=== PATIENT | male | born 1945 | race Caucasian/White ===

== ENCOUNTER → 2018-03-25 | Outpatient (CLI) | payer OTHER | LOC: FIMAGING 10:22 | PROVIDERS: ATTEND Orthopaedic Surgery | DX: Z01.818 Encounter for other preprocedural examination (principal); M17.11 Unilateral primary osteoarthritis, right knee ==

== ENCOUNTER 2018-04-08 07:15 | Observation (INO) | payer OTHER ==
--- NOTE | 2018-04-08 07:03 | PDHPUP ---
History & Physical Update H&P update statement: This history and physical update is based on an assessment of the patient which was completed after admission or registration (within 24 hours), but prior to the surgery/procedure. H&P update: H&P reviewed & patient examined, no change in patient's condition since H&P completed
[~2018-04-08 07:15] MED LIST: ROPIVACAINE 0.2% 80 MG, EPINEPHrine 0.2 MG, KETOROLAC TROMETHAMINE 30 MG in SYRINGE 0 ML IU ONE; TRANEXAMIC ACID 3,000 MG in NS (SYRINGE) 50 ML IRR ONE
[2018-04-08] MEDS ORDERED: TRANEXAMIC ACID 3,000 MG/50 ML BAG IRR ONE (07:54)
[2018-04-08] MEDS ORDERED: FAMOTIDINE 20 MG TAB PO ONE (09:16)
[2018-04-08] MEDS ORDERED: DEXAMETHASONE 4 MG/ML VIAL IVP ONE (09:16)
[2018-04-08] MEDS ORDERED: ceFAZolin 2 GM/DEXTROSE 100 ML IV ONE (09:16)
[2018-04-08] MEDS ORDERED: ACETAMINOPHEN 325 MG TAB PO ONE (09:16)
[2018-04-08] MEDS ORDERED: LR 1,000 ML IV ONE (09:17)
[2018-04-08] MEDS ORDERED: LIDOCAINE 1% 2 ML INJ ID PRN (09:17)
[2018-04-08] MEDS ORDERED: PROPOFOL 200 MG/20 ML VIAL ONE (11:16)
[2018-04-08] MEDS ORDERED: MIDAZOLAM 2 MG/2 ML VIAL ONE (11:17)
[2018-04-08] MEDS ORDERED: LIDOCAINE 2% 5 ML SDV ONE (11:38)
[2018-04-08] MEDS ORDERED: ePHEDrine SULFATE 25 MG/5 ML SYR ONE (11:38)
[2018-04-08] MEDS ORDERED: ROPIVACAINE HCL 150 MG/30 ML INJ ONE (11:38)
--- NOTE | 2018-04-08 11:40 | PDANEPAE ---
ANE Past Medical History - Cardiovascular History Hx Hypertension: Yes Hx Arrhythmias: No Hx Chest Pain: No Hx Coronary Artery / Peripheral Vascular Disease: Yes Hx CHF / Valvular Disease: No Hx Palpitations: No Cardiovascular History Comment: cad- stent x1 placed 20 years ago. high chol. currently not seeing frame carver spindle - Pulmonary History Hx COPD: No Hx Asthma/Reactive Airway Disease: No Hx Recent Upper Respiratory Infection: No Hx Oxygen in Use at Home: No Hx Sleep Apnea: No Sleep Apnea Screening Result - Last Documented: Positive Pulmonary History Comment: leonides triggers only - Neurologic History Hx Cerebrovascular Accident: No Hx Seizures: No Hx Dementia: No Neurologic History Comment: possible tia- no definite diagnosis around 5 yrs ago - Endocrine History Hx Diabetes: No - Renal History Hx Renal Disorders: Yes Renal History Comment: bph - Liver History Hx Hepatic Disorders: No - Neurological & Psychiatric Hx Hx Neurological and Psychiatric Disorders: Yes Neurological / Psychiatric History Comment: depression - Cancer History Hx Cancer: No - Congenital Disorder History Hx Congenital Disorders: No - GI History Hx Gastrointestinal Disorders: Yes Gastrointestinal History Comment: occ reflux. occ constipation - Other Health History Other Health History: wears glasses. bilateral hearing aides - Chronic Pain History Chronic Pain: Yes (right knee) - Surgical History Prior Surgeries: hernia repair 2016. knee scope. tumor removal between lungs. tonsillectomy ANE Review of Systems Review of Systems: - Exercise capacity METS (RN): 4 METS ANE Patient History - Allergies Allergies/Adverse Reactions: No Known Allergies Allergy (Verified 03/25/18 11:42) - Home Medications Home Medications: Aspirin [Aspirin 81mg (*)] 81 mg PO DAILY 11/10/10 [Last Taken 1 Month Ago ~] traZODone [traZODone 150MG (*)] 300 mg PO HS 11/10/10 [Last Taken 04/07/18 21:00 ] Lisinopril [Zestril 20 mg (*)] 20 mg PO DAILY 09/18/14 [Last Taken 04/07/18 21: 00] Atorvastatin Calcium [Lipitor 20 mg (*)] 20 mg PO DAILY 03/25/18 [Last Taken 21:00] Sildenafil Citrate [Viagra] 100 mg PO DAILY PRN 03/25/18 [Last Taken 1 Year Ago ~04/08/17] Tamsulosin HCl [Flomax 0.4 MG (*)] 0.4 mg PO DAILY 03/25/18 [Last Taken 04/06/18 ] amLODIPine BESYLATE [Norvasc 5 mg (*)] 5 mg PO DAILY 03/25/18 [Last Taken 07:30] - NPO status NPO Since - Liquids (Date): 04/08/18 NPO Since - Liquids (Time): 06:00 NPO Since - Solids (Date): 04/07/18 NPO Since - Solids (Time): 21:00 - Smoking Hx Smoking Status: Never smoked - Family Anes Hx Family Hx Anesthesia Complications: none ANE Labs/Vital Signs - Vital Signs Blood Pressure: 150/99 Heart Rate: 70 Respiratory Rate: 16 O2 Sat (%): 95 Height: 182.88 cm Weight: 77.111 kg ANE Physical Exam - Airway Neck exam: FROM Mallampati Score: Class 1 Mouth exam: normal dental/mouth exam - Pulmonary Pulmonary: no respiratory distress, no rales or rhonchi, clear to auscultation - Cardiovascular Cardiovascular: regular rate and rhythym, no murmur, rub, or gallop - ASA Status ASA Status: III ANE Anesthesia Plan Anesthesia Plan: spinal Regional Anesthesia: adductor canal FNB
[2018-04-08] MEDS ORDERED: DEXAMETHASONE 4 MG/ML VIAL IVP PRN (11:45)
[2018-04-08] MEDS ORDERED: NALOXONE HCL 0.4 MG/ML INJ IVP PRN (11:45)
[2018-04-08] MEDS ORDERED: ALBUTEROL 3 ML DEYVIAL IH PRN (11:45)
[2018-04-08] MEDS ORDERED: fentaNYL 100 MCG/2 ML INJ IVP PRN (11:45)
[2018-04-08] MEDS ORDERED: ONDANSETRON 4 MG/2 ML VIAL IVP PRN ×2 (11:45→12:44)
[2018-04-08] MEDS ORDERED: LR 500 ML IV PRN (11:45)
[2018-04-08] MEDS ORDERED: POLYETHYLENE GLYCOL 3350 17 GM PKT PO PRN (12:44)
[2018-04-08] MEDS ORDERED: PROMETHAZINE HCL 25 MG/ML INJ IVP PRN (12:44)
[2018-04-08] MEDS ORDERED: diphenhydrAMINE 25 MG CAP PO PRN (12:44)
[2018-04-08] MEDS ORDERED: METOCLOPRAMIDE 10 MG/2 ML VIAL IVP PRN (12:44)
[2018-04-08] MEDS ORDERED: MAGNESIUM HYDROXIDE 30 ML UDCUP PO PRN (12:44)
[2018-04-08] MEDS ORDERED: LACTULOSE 20 GM/30 ML UDCUP PO PRN (12:44)
[2018-04-08] MEDS ORDERED: ONDANSETRON DISINTEGRATING 4 MG TAB PO PRN (12:44)
[2018-04-08] MEDS ORDERED: TEMAZEPAM 15 MG CAP PO PRN (12:44)
[2018-04-08] MEDS ORDERED: PROMETHAZINE HCL 25 MG SUPPR PR PRN (12:44)
[2018-04-08] MEDS ORDERED: DIPHENOXYLATE/ATROPINE LOMOTIL 1 TAB PO PRN (12:44)
[2018-04-08] MEDS ORDERED: BISACODYL 10 MG SUPP PR PRN (12:44)
--- NOTE | 2018-04-08 12:44 | POSTOPPROG ---
Post Op Note Date of Operation: 04/08/18 Surgeon: Karolina Heath Intelligence Research Specialist: pooja heath Anesthesiologist: dr. arias Anesthesia: Spinal, Other (Specify) Pre-op Diagnosis: Right knee OA Post-op Diagnosis: same Indication: right knee pain due to OA that failed conservative measures Procedure: R TKA robot assisted, computer forrest and sensor assisted Findings: severe knee OA Inf/Abcess present in the surg proc area at time of surgery?: No EBL: 50-100
[2018-04-08] MEDS ORDERED: LR 1,000 ML IV SCH (13:00)
--- NOTE | 2018-04-08 13:08 | POSTANESTH ---
Post Anesthetic Evaluation Cardiovascular Status: Normal, Stable, Similar to Pre-Op Cond Respiratory Status: Normal, Stable, Similar to Pre-op Cond. Level of Consciousness/Mental Status: Can Participate in Eval Pain Control: Adequate, Prn Tx Ordered Nausea/Vomiting Control: Adequate, Prn Tx Ordered Complications Possibly Related to Anesthesia: None Noted
[2018-04-08] MEDS ORDERED: oxyCODONE IR 5 MG TAB ONE (13:40)
[2018-04-08] MEDS: oxyCODONE IR 5 MG TAB PO PRN ×3 (13:41→22:58)
--- NOTE | 2018-04-08 14:19 | ASMTCASEMG ---
Living Arrangements What is your living Answers: With Spouse arrangement? Who do you live with? Type Of Residence What kind of residence do Answers: House you live in? Discharge Plan Comments Coordination Status Comments Notes: Pt is a 73 y/o female admitted for a total knee. Therapies have been ordered and awaiting recommendations. Needs are TBD at this time. CM to follow. Plan: TBD Date Signed: 04/08/2018 02:18 PM Electronically Signed By:VANE Ham
[2018-04-08] MEDS: ACETAMINOPHEN 325 MG TAB PO SCH (17:18)
[2018-04-08] MEDS: ceFAZolin 2 GM/DEXTROSE 100 ML IV SCH (17:18)
[2018-04-08] MEDS: CYCLOBENZAPRINE 10 MG TAB PO PRN (17:29)
[2018-04-08] MEDS: ASPIRIN 81 MG CHEWABLE TAB PO SCH (22:34)
[2018-04-08] MEDS: FAMOTIDINE 20 MG TAB PO SCH (22:34)
[2018-04-08] MEDS: SENNOSIDES/DOCUSATE SODIUM TAB PO SCH (22:35)
[2018-04-09] MEDS: CYCLOBENZAPRINE 10 MG TAB PO PRN ×3 (01:33→13:27)
[2018-04-09] MEDS: ACETAMINOPHEN 325 MG TAB PO SCH ×3 (01:33→13:26)
[2018-04-09] MEDS: ceFAZolin 2 GM/DEXTROSE 100 ML IV SCH (03:05)
--- NOTE | 2018-04-09 06:27 | GOP ---
[f rep st] OPERATIVE REPORT DATE OF OPERATION: 04/08/2018 SURGEON: Naveen Sadler MD NEUROSURGEON: Naveen Sadler MD. AUTOMATIC DEVELOPER: Julia Sadler PA-C. ANESTHESIA: Spinal. PREOPERATIVE DIAGNOSIS: Right knee osteoarthritis. POSTOPERATIVE DIAGNOSIS: Right knee osteoarthritis. PROCEDURE PERFORMED: Right total knee arthroplasty with computer navigation, robotic assist. FINDINGS: ESTIMATED BLOOD LOSS: 30 cc. INDICATIONS: The patient is a 73-year-old male with severe and progressive pain and deformity of the right knee unresponsive to conservative care. The risks and benefits of surgical intervention were explained in detail. DESCRIPTION OF PROCEDURE: The patient was brought to the operative room and placed on the table in the supine position. Spinal anesthesia was induced without difficulty. A pneumatic tourniquet was applied about the right proximal thigh, and the leg was prepped and draped in a sterile fashion. The leg tompkins was applied. After exsanguination by elevation the tourniquet was inflated to 250 mmHg. Incision was made anterior medial from the tibial tuberosity to the superior pole of the patella. Medial parapatellar arthrotomy was carried out from the barkley the patella and posteriorly in line with the fibers of the Type II VMO. The medial collateral ligament was elevated and the infrapatellar fat pad was resected. The patella was everted and the articular surface was excised. A 30 mm patellar button was placed. Attention was turned first to the distal aspect of the femur. After exposure of the femur, 2 half pins were placed for fixation of the femoral array. In a similar fashion, 2 pins were placed anteromedial on the tibia for fixation of the tibial array. External land marking and registration of the hip center was performed without difficulty. Internal femoral and tibial registration was carried out without difficulty and the femoral and tibial checkpoints were placed and verified for accuracy. Attention was turned to the femur. The foot print for the size 6 femoral component was cut with the saw using the [employer] robotic system and verified for accuracy against the CT based plan. In a similar fashion, the saw was used to cut the footprint for the size 6 tibial component using the [employer] system and verified for accuracy against the CT based plan. The tibial articular surface was excised without difficulty, followed by the intercondylar box cut. The knee was extended and the remnants of the medial and lateral meniscus were excised. The posterior capsule was injected with ropivacaine, epinephrine and Toradol. A size 6 mm tibial tray was positioned. Trial reduction was then carried out. There was excellent range of motion, alignment, and stability using the 6 x 9 mm polyethylene. All trials were then removed. The joint was thoroughly irrigated and carefully dried. The pressfit components were implanted. The permanent 6 x 9 mm polyethylene was placed without difficulty. The tourniquet was deflated and all bleeders were coagulated. The wound was thoroughly irrigated and closed using interrupted sutures of 2-0 Vicryl for the joint capsule. The subcu was closed with 3-0 Vicryl and the skin with 4-0 Monocryl. Dermabond and Steri-Strips were applied followed by a compressive dressing. The patient was then moved from the operating room to the recovery room in good condition, having tolerated the procedure well. OrthoSensor Verasense sensor was used to confirm balance and alignment. PATHOLOGY: Severe patellofemoral osteoarthritis. /[id number]/MODL MTDD
[2018-04-09] MEDS ORDERED: ATORVASTATIN CALCIUM 20 MG TAB PO SCH (09:00)
[2018-04-09] MEDS ORDERED: amLODIPine BESYLATE 5 MG TAB PO SCH (09:00)
[2018-04-09] MEDS ORDERED: TAMSULOSIN HCL 0.4 MG CAP PO SCH (09:00)
[2018-04-09] MEDS ORDERED: LISINOPRIL 20 MG TAB PO SCH (09:00)
[2018-04-09] MEDS: SENNOSIDES/DOCUSATE SODIUM TAB PO SCH (09:31)
[2018-04-09] MEDS: FAMOTIDINE 20 MG TAB PO SCH (09:31)
[2018-04-09] MEDS: ASPIRIN 81 MG CHEWABLE TAB PO SCH (09:32)
[2018-04-09] MEDS: oxyCODONE IR 5 MG TAB PO PRN ×2 (09:41→13:27)
[2018-04-09 12:42] VITALS: BP 123/68
--- NOTE | 2018-04-09 17:03 | SOAPPROG ---
SOAP Progress Note Assessment/Plan: Assessment: Patient is doing well POD 1 s/p R TKA Pain management: pain is well controlled on oral pain meds. VTE ppx: recommend aspirin 81 mg BID for 4 weeks, cont DINORAH and SCDs Anemia: level is expected initially postop. Asymptomatic. Continue to monitor D/c planning: d/c to home today pending release from PT Plan: 04/09/18 17:02 Subjective: patient is doing well today, denies SOB, chest pain, N/V. Objective: Vital Signs Temp Pulse Resp BP Pulse Ox 36.8 C 70 16 123/68 H 96 04/09/18 12:00 04/09/18 12:00 04/09/18 12:00 04/09/18 12:00 04/09/18 12:00 Laboratory Results 04/09/18 05:12 04/08/18 04/09/18 04/10/18 05:59 05:59 05:59 Intake Total 2761 500 Output Total 1395 250 Balance 1366 250 RLE; incision dressing is clean and dry, NVI, +pf/df ICD10 Worksheet Patient Problems: Problems Problem Status Onset Primary localized osteoarthritis of right knee Acute
== END 2018-04-09 13:35 | disposition home or self-care (01) ==
LOC: F3N 08:51
PROVIDERS: ADMIT Orthopaedic Surgery; ATTEND Orthopaedic Surgery
PROC: 0SRC06Z Replacement of Right Knee Joint with Oxidized Zirconium on Polyethylene Synthetic Substitute, Open Approach (ICD-10-PCS; principal; 2018-04-08 11:15)
DX: M17.11 Unilateral primary osteoarthritis, right knee (principal); I10 Essential (primary) hypertension; F32.9 Major depressive disorder, single episode, unspecified; Z95.5 Presence of coronary angioplasty implant and graft; Z87.820 Personal history of traumatic brain injury
CPT/HCPCS: 27447; 73560; 88311; 97116; 97161; 97165; C1776; G0378; G8978; G8979; G8980; J0171; J0690; J1100; J1885; J2250; J2704; J2795

== ENCOUNTER → 2018-04-17 | Outpatient (CLI) | payer OTHER | LOC: FIMAGING 10:56 | PROVIDERS: ATTEND Orthopaedic Surgery | DX: I80.01 Phlebitis and thrombophlebitis of superficial vessels of right lower extremity (principal); Z96.659 Presence of unspecified artificial knee joint ==

== ENCOUNTER → 2018-06-18 | Outpatient (CLI) | payer OTHER | LOC: CIMAGING 14:59 | PROVIDERS: ATTEND Internal Medicine | DX: R42 Dizziness and giddiness (principal); G45.9 Transient cerebral ischemic attack, unspecified; Z95.5 Presence of coronary angioplasty implant and graft | CPT/HCPCS: 93880-PO ==

== ENCOUNTER → 2018-06-26 | Outpatient (CLI) | payer OTHER | LOC: FIMAGING 10:49 | PROVIDERS: ATTEND Orthopaedic Surgery | DX: Z01.818 Encounter for other preprocedural examination (principal); M17.12 Unilateral primary osteoarthritis, left knee ==

== ENCOUNTER 2018-07-10 07:16 | Inpatient (IN) | payer OTHER ==
[2018-07-10] MEDS ORDERED: TRANEXAMIC ACID 3,000 MG/50 ML BAG IRR ONE (07:44)
[2018-07-10] MEDS ORDERED: LIDOCAINE 2% 100 MG/5 ML SYR ONE (07:45)
[2018-07-10] MEDS ORDERED: MIDAZOLAM 2 MG/2 ML VIAL ONE (07:46)
[2018-07-10] MEDS ORDERED: fentaNYL 100 MCG/2 ML INJ ONE ×2 (07:46→11:15)
[2018-07-10] MEDS ORDERED: PROPOFOL/EMULSION 500 MG/50 ML BOTTLE IV ONE (07:46)
[2018-07-10] MEDS ORDERED: ACETAMINOPHEN 325 MG TAB PO ONE (08:04)
[2018-07-10] MEDS ORDERED: ceFAZolin 2 GM/DEXTROSE 100 ML IV ONE (08:04)
[2018-07-10] MEDS ORDERED: DEXAMETHASONE 4 MG/ML VIAL IVP ONE (08:04)
[2018-07-10] MEDS ORDERED: LR 1,000 ML IV ONE (08:04)
[2018-07-10] MEDS ORDERED: FAMOTIDINE 20 MG TAB PO ONE (08:04)
[2018-07-10] MEDS ORDERED: DEXAMETHASONE 4 MG/ML VIAL ONE (08:31)
--- NOTE | 2018-07-10 09:04 | PDANEPAE ---
ANE History of Present Illness L knee DJD, here for L TKA ANE Past Medical History - Cardiovascular History Hx Hypertension: Yes Hx Arrhythmias: No Hx Chest Pain: No Hx Coronary Artery / Peripheral Vascular Disease: Yes Hx CHF / Valvular Disease: No Hx Palpitations: No Cardiovascular History Comment: cad- stent x1 placed 20 years ago. high chol. currently not seeing psych therapist - Pulmonary History Hx COPD: No Hx Asthma/Reactive Airway Disease: No Hx Recent Upper Respiratory Infection: No Hx Oxygen in Use at Home: No Hx Sleep Apnea: No Sleep Apnea Screening Result - Last Documented: Positive Pulmonary History Comment: leonides triggers only - Neurologic History Hx Cerebrovascular Accident: No Hx Seizures: No Hx Dementia: No Neurologic History Comment: possible tia- no definite diagnosis around 5 yrs ago - Endocrine History Hx Diabetes: No - Renal History Hx Renal Disorders: No Renal History Comment: bph - Liver History Hx Hepatic Disorders: No - Neurological & Psychiatric Hx Hx Neurological and Psychiatric Disorders: Yes Neurological / Psychiatric History Comment: depression - Cancer History Hx Cancer: No - Congenital Disorder History Hx Congenital Disorders: No - GI History Hx Gastrointestinal Disorders: Yes Gastrointestinal History Comment: occ reflux. occ constipation - Other Health History Other Health History: wears glasses. bilateral hearing aides - Chronic Pain History Chronic Pain: No - Surgical History Prior Surgeries: hernia repair 2016. knee scope. tumor removal between lungs. tonsillectomy. R TKA ANE Review of Systems Review of Systems: - Exercise capacity METS (RN): 4 METS ANE Patient History - Allergies Allergies/Adverse Reactions: No Known Allergies Allergy (Verified 03/25/18 11:42) - Home Medications Home Medications: traZODone [traZODone 150MG (*)] 300 mg PO HS 11/10/10 [Last Taken 07/09/18] Lisinopril [Zestril 20 mg (*)] 20 mg PO DAILY 09/18/14 [Last Taken 04/07/18 21: 00] Atorvastatin Calcium [Lipitor 20 mg (*)] 20 mg PO DAILY 03/25/18 [Last Taken ] Sildenafil Citrate [Viagra] 100 mg PO DAILY PRN 03/25/18 [Last Taken 1 Year Ago ~04/08/17] Tamsulosin HCl [Flomax 0.4 MG (*)] 0.4 mg PO HS 03/25/18 [Last Taken 07/09/18] amLODIPine BESYLATE [Norvasc 5 mg (*)] 5 mg PO DAILY 03/25/18 [Last Taken ] Acetaminophen [Tylenol 325mg (*)] 650 mg PO Q6HRS PRN 05/29/18 [Last Taken 07/09] Aspirin [Aspirin 81mg (*)] 81 mg PO DAILY 05/29/18 [Last Taken 07/09/18] Multivitamins [Multivitamin (*)] 1 each PO DAILY 05/29/18 [Last Taken 06/30/18] - Smoking Hx Smoking Status: Never smoked - Family Anes Hx Family Hx Anesthesia Complications: none ANE Labs/Vital Signs - Vital Signs Height: 182.88 cm Weight: 77.111 kg ANE Physical Exam - Airway Neck exam: FROM Mallampati Score: Class 1 Mouth exam: normal dental/mouth exam - Pulmonary Pulmonary: no respiratory distress - Cardiovascular Cardiovascular: regular rate and rhythym - ASA Status ASA Status: III ANE Anesthesia Plan Anesthesia Plan: GA with mask, spinal
[2018-07-10] MEDS ORDERED: diphenhydrAMINE 25 MG CAP PO PRN (09:45)
[2018-07-10] MEDS ORDERED: CYCLOBENZAPRINE 10 MG TAB PO PRN (09:45)
[2018-07-10] MEDS ORDERED: POLYETHYLENE GLYCOL 3350 17 GM PKT PO PRN (09:45)
[2018-07-10] MEDS ORDERED: DIPHENOXYLATE/ATROPINE LOMOTIL 1 TAB PO PRN (09:45)
[2018-07-10] MEDS ORDERED: METOCLOPRAMIDE 10 MG/2 ML VIAL IVP PRN (09:45)
[2018-07-10] MEDS ORDERED: PROMETHAZINE HCL 25 MG/ML INJ IVP PRN (09:45)
[2018-07-10] MEDS ORDERED: ONDANSETRON DISINTEGRATING 4 MG TAB PO PRN (09:45)
[2018-07-10] MEDS ORDERED: ONDANSETRON 4 MG/2 ML VIAL IVP PRN ×2 (09:45→10:02)
[2018-07-10] MEDS ORDERED: TEMAZEPAM 15 MG CAP PO PRN (09:45)
[2018-07-10] MEDS ORDERED: LACTULOSE 20 GM/30 ML UDCUP PO PRN (09:45)
[2018-07-10] MEDS ORDERED: PROMETHAZINE HCL 25 MG SUPPR PR PRN (09:45)
[2018-07-10] MEDS ORDERED: BISACODYL 10 MG SUPP PR PRN (09:45)
[2018-07-10] MEDS ORDERED: MAGNESIUM HYDROXIDE 30 ML UDCUP PO PRN (09:45)
[2018-07-10] MEDS ORDERED: Sildenafil Citrate [Viagra] 100 MG PO PRN (09:46)
[2018-07-10] MEDS ORDERED: LR 1,000 ML IV SCH (10:00)
[2018-07-10] MEDS ORDERED: fentaNYL 100 MCG/2 ML INJ IVP PRN (10:02)
[2018-07-10] MEDS ORDERED: LR 500 ML IV PRN (10:02)
[2018-07-10] MEDS ORDERED: NALOXONE HCL 0.4 MG/ML INJ IVP PRN (10:02)
[2018-07-10] MEDS ORDERED: HYDROmorphONE/DILAUDID 2 MG/ML INJ IVP PRN (10:02)
--- NOTE | 2018-07-10 10:47 | POSTOPPROG ---
Post Op Note Date of Operation: 07/10/18 Surgeon: Karolina Heath Field Service Analyst: pooja heath Anesthesiologist: dr. roth Anesthesia: Spinal, Other (Specify) (adductor canal block) Pre-op Diagnosis: left knee OA Post-op Diagnosis: same Indication: left knee pain Procedure: L TKA robot assisted, sensor assisted Findings: severe knee OA Inf/Abcess present in the surg proc area at time of surgery?: No EBL: 50-100
[2018-07-10] MEDS ORDERED: ACETAMINOPHEN 325 MG TAB ONE (11:15)
[2018-07-10] MEDS ORDERED: oxyCODONE IR 5 MG TAB ONE (11:15)
[2018-07-10] MEDS: oxyCODONE IR 5 MG TAB PO PRN ×4 (11:21→21:17)
[2018-07-10] MEDS: ACETAMINOPHEN 325 MG TAB PO SCH ×3 (11:21→23:59)
--- NOTE | 2018-07-10 14:31 | PDMN ---
Medical Necessity Medical necessity: Pt meets inpt criteria per MD order and MCG M-700, Knee Arthroplasty. 73 y/o w/left knee OA admitted for L total knee arthroplasty and post-op care, anticipate>2MN given pt's adv age and comorbidities including HTN , CAD, BPH, depression.
--- NOTE | 2018-07-10 16:19 | POSTANESTH ---
Post Anesthetic Evaluation Cardiovascular Status: Normal, Stable Respiratory Status: Normal, Stable Level of Consciousness/Mental Status: Can Participate in Eval Pain Control: Adequate, Prn Tx Ordered Nausea/Vomiting Control: Adequate, Prn Tx Ordered Complications Possibly Related to Anesthesia: None Noted (Able to move both extrem in PACU, tolerated block well, met all criteria for DC to floor)
[2018-07-10] MEDS: ceFAZolin 2 GM/DEXTROSE 100 ML IV SCH (17:49)
[2018-07-10] MEDS: FAMOTIDINE 20 MG TAB PO SCH (19:50)
[2018-07-10] MEDS: ASPIRIN 81 MG CHEWABLE TAB PO SCH (19:50)
[2018-07-10] MEDS: SENNOSIDES/DOCUSATE SODIUM TAB PO SCH (19:50)
[2018-07-10] MEDS ORDERED: TAMSULOSIN HCL 0.4 MG CAP PO SCH (21:00)
[2018-07-11] MEDS: ceFAZolin 2 GM/DEXTROSE 100 ML IV SCH
[2018-07-11] MEDS: oxyCODONE IR 5 MG TAB PO PRN ×3 (00:01→11:43)
[2018-07-11] MEDS: ACETAMINOPHEN 325 MG TAB PO SCH ×2 (05:37→11:42)
[2018-07-11 07:51] VITALS: BP 134/80
[2018-07-11] MEDS: SENNOSIDES/DOCUSATE SODIUM TAB PO SCH (08:42)
[2018-07-11] MEDS: ASPIRIN 81 MG CHEWABLE TAB PO SCH (08:42)
[2018-07-11] MEDS: FAMOTIDINE 20 MG TAB PO SCH (08:42)
[2018-07-11] MEDS ORDERED: LISINOPRIL 20 MG TAB PO SCH (09:00)
[2018-07-11] MEDS ORDERED: amLODIPine BESYLATE 5 MG TAB PO SCH (09:00)
[2018-07-11] MEDS ORDERED: ATORVASTATIN CALCIUM 20 MG TAB PO SCH (09:00)
--- NOTE | 2018-07-11 10:56 | SOAPPROG ---
SOAP Progress Note Assessment/Plan: Assessment: patient is doing well s/p L TKA pain is well controlled on oral pain meds Anemia: level expected initially postop. asymptomatic VTE ppx: recommend ASA 81 mg BID for 4 weeks D/c planning: d/c to home today once released from PT postop urinary retention: straight cath'd yesterday, resolved today. Plan: 07/11/18 10:55 Subjective: patient is doing well today, denies SOB, chest pain and N/V Objective: Vital Signs Temp Pulse Resp BP Pulse Ox 36.4 C 66 16 134/80 H 94 07/11/18 07:49 07/11/18 07:49 07/11/18 07:49 07/11/18 07:49 07/11/18 07:49 Laboratory Results 07/11/18 04:38 07/10/18 07/11/18 07/12/18 05:59 05:59 05:59 Intake Total 2500 Output Total 2920 300 Balance -420 -300 LLE: incision dressing is clean and dry, NVI, +pf/df ICD10 Worksheet Patient Problems: Problems Problem Status Onset Primary localized osteoarthritis of left knee Acute Primary localized osteoarthritis of right knee Acute
--- NOTE | 2018-07-14 11:34 | GOP ---
DATE OF OPERATION: 07/10/2018 SURGEON: Naveen Sadler MD CORRECTIVE THERAPIST: Julia Sadler PA-C PREOPERATIVE DIAGNOSIS: Left knee osteoarthritis. POSTOPERATIVE DIAGNOSIS: Left knee osteoarthritis. PROCEDURE PERFORMED: Left total knee arthroplasty with computer navigation, robotic assist. FINDINGS: ESTIMATED BLOOD LOSS: 30 mL. INDICATIONS: The patient is a 73-year-old gentleman with severe and progressive pain and deformity of the right knee unresponsive to conservative care. Risks and benefits of the surgical intervention were explained in detail. DESCRIPTION OF PROCEDURE: The patient was brought to the operative room and placed on the table in the supine position. Spinal anesthesia was induced without difficulty. A pneumatic tourniquet was applied about the left proximal thigh, and the leg was prepped and draped in a sterile fashion. The leg tompkins was applied. After exsanguination by elevation the tourniquet was inflated to 250 mmHg. Incision was made anterior medial from the tibial tuberosity to a point 2 cm proximal to the superior pole of the patella. Medial parapatellar arthrotomy was carried out from the superior pole of the patella and posteriorly in line with the fibers of the Type II VMO. The medial collateral ligament was elevated and the infrapatellar fat pad was resected. The patella was everted and the articular surface was excised. A 38 mm patellar button was placed. Attention was turned first to the distal aspect of the femur. After exposure of the femur, 2 half pins were placed for fixation of the femoral array. In a similar fashion, 2 pins were placed anteromedial on the tibia for fixation of the tibial array. External land marking and registration of the hip center were performed without difficulty. Internal femoral and tibial registration were carried out without difficulty and the femoral and tibial checkpoints were placed and verified for accuracy. Attention was turned to the femur. The foot print for the size 6 femoral component was cut with the saw using the [employer] robotic system and verified for accuracy against the CT based plan. In a similar fashion, the saw was used to cut the footprint for the size 6 tibial component using the [employer] system and verified for accuracy against the CT based plan. The tibial articular surface was excised without difficulty, followed by the intercondylar box cut. The knee was extended and the remnants of the medial and lateral meniscus were excised. The posterior capsule was injected with ropivacaine, epinephrine and Toradol. A size 6 femur tibial tray was positioned. Trial reduction was then carried out. There was excellent range of motion, alignment, and stability using the 6 x 9 mm polyethylene. All trials were then removed. The joint was thoroughly irrigated and carefully dried. The press-fit components were implanted. The permanent _9 mm polyethylene was placed without difficulty. The tourniquet was deflated and all bleeders were coagulated. The wound was thoroughly irrigated and closed using interrupted sutures of 2-0 Vicryl for the joint capsule. The subcu was closed with 3-0 Vicryl and the skin with 4-0 Monocryl. Dermabond and Steri-Strips were applied followed by a compressive dressing. The patient was then moved from the operating room to the recovery room in good condition, having tolerated the procedure well. PATHOLOGY: Medial and patellofemoral osteoarthritis. /[id number]/MODL MTDD
== END 2018-07-11 12:04 | disposition home or self-care (01) | DRG 470 ==
LOC: F3N 07:16 → OBSVTOIN 09:47 → F3N 11:46
PROVIDERS: ADMIT Orthopaedic Surgery; ATTEND Orthopaedic Surgery
PROC: 0SRD0JZ Replacement of Left Knee Joint with Synthetic Substitute, Open Approach (ICD-10-PCS; principal; 2018-07-10 09:00)
PROC: 8E0YXBZ Computer Assisted Procedure of Lower Extremity (ICD-10-PCS; principal; 2018-07-10 09:00)
PROC: 8E0YXCZ Robotic Assisted Procedure of Lower Extremity (ICD-10-PCS; principal; 2018-07-10 09:00)
DX: M17.12 Unilateral primary osteoarthritis, left knee (principal); I10 Essential (primary) hypertension; I25.10 Atherosclerotic heart disease of native coronary artery without angina pectoris; G47.30 Sleep apnea, unspecified; Z95.5 Presence of coronary angioplasty implant and graft
CPT/HCPCS: 97116-GP; 97161-GP; 97530-GP; G8978-GP-CK; G8979-GP-CI; G8980-GP-CI; J0171; J0690; J1100; J1885; J2001; J2250; J2704; J2795; J3010

== ENCOUNTER → 2019-02-15 | Outpatient (CLI) | payer OTHER | LOC: CIMAGING 08:54 | PROVIDERS: ATTEND Specialist | DX: N32.81 Overactive bladder (principal); R35.0 Frequency of micturition; D41.4 Neoplasm of uncertain behavior of bladder | CPT/HCPCS: 76770-PO ==